=== PATIENT | male | born 1965 | race Caucasian/White ===

== ENCOUNTER 2022-07-02 02:49 | Day surgery (SDC) | payer OTHER, SELFPAY ==
[2022-06-26 09:27] VITALS: BMI 27.4
[2022-07-02 06:20] VITALS: BP 106/68; PULSE 58; RESP 18; TEMP 36.2; O2SAT 95; BMI 28.4
[2022-07-02] MEDS: LACTATED RINGERS 1,000 ML 150 ML IV CONT (06:29)
--- NOTE | 2022-07-02 06:53 | P.PNAN_ITS ---
Anes - Initial Pre Proc Eval Procedure: Operation Date: 07/02/22 07:30 Proposed Procedures p Screening Colonoscopy - Zaire Rodriguez MD Date/Time: 07/02/22 06:53 Surgeon: Zaire Rodriguez MD Pre Op Diagnosis: family hx colon polyps, neoplasm screening Patient Data Age: 56 Gender: M Height: 1.7 m Weight: 82.3 kg Last Vital Signs Temp 36.2 C L 07/02/22 06:20 Pulse 58 L 07/02/22 06:20 Resp 18 07/02/22 06:20 BP 106/68 07/02/22 06:20 Pulse Ox 95 07/02/22 06:20 O2 Del Method Room Air 07/02/22 06:20 Allergies Allergy/AdvReac Type Severity Reaction Status Date / Time No Known Allergies Allergy Verified 07/02/22 06:18 Home Medications Medication Instructions Recorded Confirmed Type Celebrex 100 mg PO BID PRN Pain, Moderate 07/21/20 07/02/22 History simvastatin 10 mg tablet 10 mg PO DAILY 07/21/20 07/02/22 History Patient hx anesthesia problems: none Family hx anesthesia problems: none Results Review: All pre-operative results and documents have been reviewed as part of the pre- operative evaluation. PMFSH Past Medical History Medical History (Updated 07/02/22 @ 06:53 by Tejas Mac MD) Hyperlipidemia Overweight Surgical History Surgical History (Updated 07/02/22 @ 06:56 by Tejas Mac MD) H/O hernia repair Social History Social History Smoking status: Never smoker Alcohol intake: current Drinks per week: 2 Alcohol use details: socially Substance use: never Substance use type: does not use Living arrangements: with family Gender identity (if verbalized by the patient): Male Spiritual care concerns: No Anes - Eval Final PreProcedure Day of Procedure 07/02/22 06:53 Patient weight: overweight Heart: regular rate and rhythm Lungs: clear to auscultation Airway: Mallampati scale class II Neurological: alert and oriented Last oral intake: >/= 8 hours ASA classification: II Emergent: no Anesthetic plan: proceed Anesthesia type and monitoring: general GIVS and standard monitoring Results Review: All pre-operative results and documents have been reviewed as part of the pre- operative evaluation. Informed Consent: The patient's anesthetic plan and its attendant risks and benefits were discussed with the patient/family/POA. Questions were solicited and answers provided to the satisfaction of the patient/family/POA.
--- NOTE | 2022-07-02 07:21 | PM.HPGS ---
History of Present Illness History of Present Illness Consent: Risks, benefits, and alternatives have been discussed and questions answered. Patient agrees to proceed with procedure. Chief complaint: family hx colon polyps, neoplasm screening Narrative: Guille Oglesby is a 56 year old male Presents for screening colonoscopy. Patient's sister had colon polyps. Patient reports that his current weight appetite and bowel movements are normal. Patient denies abdominal pain. He has had no bleeding. Family history as stated. Review of Systems Review of Systems: Review of systems noncontributory. [facility] Past Medical History Medical History (Updated 07/02/22 @ 07:23 by Zaire Rodriguez MD) Hyperlipidemia Overweight Surgical History Surgical History (Updated 07/02/22 @ 06:56 by Tejas Mac MD) H/O hernia repair Social History Social History Smoking status: Never smoker Alcohol intake: current Drinks per week: 2 Alcohol use details: socially Substance use: never Substance use type: does not use Living arrangements: with family Gender identity (if verbalized by the patient): Male Spiritual care concerns: No Meds Home Medications and Allergies Home Medications Medication Instructions Recorded Confirmed Type Celebrex 100 mg PO BID PRN Pain, Moderate 07/21/20 07/02/22 History simvastatin 10 mg tablet 10 mg PO DAILY 07/21/20 07/02/22 History Allergies Allergy/AdvReac Type Severity Reaction Status Date / Time No Known Allergies Allergy Verified 07/02/22 06:18 Vital Signs Vital Signs - 24 hr 07/02/22 06:20 Temperature 97.1 F L Pulse Rate 58 L Respiratory Rate 18 Blood Pressure 106/68 Pulse Oximetry 95 Oxygen Delivery Room Air Exam Narrative: Physical exam reveals patient to be alert. Vital signs stable. HEENT exam is unremarkable. Patient is anicteric. Lungs are clear to auscultation and percussion. Heart is without murmur or extra sounds. Abdomen bowel sounds are present soft nontender with no organomegaly. Digital external rectal exam normal. Assessment and Plan Assessment and plan (1) Encounter for screening colonoscopy: Code(s): Z12.11 - Encounter for screening for malignant neoplasm of colon Status: Acute Assessment and Plan: Patient presents for screening colonoscopy. Family history is significant that his sister had colon polyps. Patient's last colonoscopy 2014 was unremarkable. Further recommendations may be given after endoscopy.
[2022-07-02 07:51] VITALS: BP 105/67; PULSE 59; RESP 16; O2SAT 96
[2022-07-02 08:01] VITALS: BP 119/76; PULSE 45; RESP 20; O2SAT 98
[2022-07-02 08:11] VITALS: BP 110/72; PULSE 46; RESP 16; O2SAT 99
== END 2022-07-02 08:14 | disposition home or self-care (01) ==
PROVIDERS: Visit Provider Internal Medicine Gastroenterology
PROC: 0DJD8ZZ Inspection of Lower Intestinal Tract, Via Natural or Artificial Opening Endoscopic (ICD-10-PCS; CPT 45378; principal; 2022-07-02 07:30)
DX: Z12.11 Encounter for screening for malignant neoplasm of colon (principal); Z83.71 Family history of colonic polyps; E78.5 Hyperlipidemia, unspecified
CPT/HCPCS: 45378; J2704; J7120